=== PATIENT | female | born 2000 | race Caucasian/White ===

== ENCOUNTER 2021-10-10 08:11 | Emergency (ER) | payer BC ==
[~2021-10-10] VITALS: Ht 165.1 cm; Wt 52.3 kg
[2021-10-10 08:40] VITALS: BP 120/82; TEMP 98.6
[2021-10-10 09:36] LABS: BASO % 0.2 % (0.0-2.0); EOS # 0.2 K/mm3 (0.0-0.7); EOS % 1.6 % (0-4.0); GRAN # 11.2 K/mm3 (1.4-6.5); GRAN % 87.3 % (42.2-75.2); HEMATOCRIT 40.4 % (37.0-47.0); HEMOGLOBIN 14.2 g/dl (12.5-16.0); LYMPH # 0.7 K/mm3 (1.2-3.4); LYMPH % 5.1 % (20.0-51.0); MEAN CELL VOLUME 85 fl (80.0-100.0); MEAN CORPUSCULAR HEMOGLOBIN 30 pg (27.0-31.0); MEAN CORPUSCULAR HGB CONC 35 g/dl (33.0-37.0); MEAN PLATELET VOLUME 9.9 fl (7.4-10.4); MONO # 0.7 K/mm3 (0.1-0.6); MONO % 5.5 % (1.7-9.3); PLATELET COUNT 324 K/mm3 (130-400); RED BLOOD COUNT 4.78 M/mm3 (4.10-5.30); REDCELL DISTRIBUTION WIDTH-CV 12.5 % (11.5-14.5)
[2021-10-10 09:53] LABS: ALANINE AMINOTRANSFERASE 9 U/L (0-55); ALBUMIN 4.3 gm/dL (3.5-5.0); ALKALINE PHOSPHATASE 66 U/L (40-150); ANION GAP 7 mmol/L (7-16); AST,SGOT 15 U/L (5-34); BILIRUBIN,TOTAL 0.8 mg/dL (0.2-1.2); BLOOD UREA NITROGEN 11 mg/dL (7-19); CALCIUM 9.4 mg/dL (8.4-10.2); CARBON DIOXIDE 24 mmol/L (22-29); CHLORIDE 107 mmol/L (98-107); CREATININE, serum 0.73 mg/dL (0.57-1.11); GLUCOSE 97 mg/dL (70-99); POTASSIUM 4.1 mmol/L (3.5-4.5); SODIUM 138 mmol/L (136-145); TOTAL PROTEIN 7.7 gm/dL (6.2-8.1)
[2021-10-10 10:00] LABS: TROPONIN-I < 0.010 ng/mL (0.00-0.033)
[2021-10-10] MEDS ORDERED: MOTRIN 800800 MG/TAB PO (12:50)
[2021-10-10] MEDS ORDERED: ZOFRAN ODT4 MG PO (12:53)
[2021-10-10 13:11] VITALS: PULSE 106
== END 2021-10-10 13:11 | disposition home or self-care (01) ==
LOC: COL.ER 08:11 → EDSEX 08:15 → COL.ER 13:11
PROVIDERS: Personal Emergency Response Attendant
DX: R07.9 Chest pain, unspecified (principal); Z20.822 Contact with and (suspected) exposure to COVID-19
CPT/HCPCS: J2270; J2405; Q9967